=== PATIENT | female | born 1985 | race Two or more races ===

== ENCOUNTER 2024-11-15 17:16 | Emergency (ER) | payer MEDICAID, SELFPAY ==
[2024-11-15 17:22] VITALS: BP 164/85; PULSE 104; RESP 20; TEMP 37.4; O2SAT 100
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
[2024-11-15] MEDS: ACETAMINOPHEN 500 MG TABLET 1000 MG PO (19:20)
[2024-11-15 20:44] VITALS: BP 124/78; PULSE 88; O2SAT 99
[2024-11-15 20:45] VITALS: BP 122/78; PULSE 88
== END 2024-11-15 20:45 | disposition home or self-care (01) ==
PROVIDERS: Emergency Provider Emergency Medicine; PCP Specialist
DX: Z04.1 Encounter for examination and observation following transport accident (principal); M25.512 Pain in left shoulder; R51.9 Headache, unspecified; M54.2 Cervicalgia
CPT/HCPCS: 70450; 71046; 72125; 73030; 99284; A9270